=== PATIENT | female | born 1970 | race Caucasian/White ===

== ENCOUNTER 2018-07-20 09:53 | Emergency (ER) | payer BC, OTHER ==
[2018-07-20 11:53] VITALS: BP 128/78
--- NOTE | 2018-07-20 11:53 | UC ---
Throat Pain/Nasal Latrell HPI - HPI Summary HPI Summary: 48 y/o female presents to the urgent care c/o sinus congestion w/ clear nasal discharge, sore throat, +PND, body aches. subjective fever at home w/ chill and a dry cough since Friday07/17/2018. Pt reports she has been taking alkaseltzer plus, Dayquill PO to alleviate symptoms. Pain w/ swallowing is 5/10. Pt reports Hx of Asthma and she request albuterol inhaler and Nebulizer solution. She is concerned her symptoms her symptoms may triggered some wheezing. Pt denies fever, SOB, wheezing, chest pain, abdominal pain, N/V/D. - History of Current Complaint Stated Complaint: SORE THROAT,HEADACHE,BODY ACHES,COUGH Time Seen by Provider: 07/20/18 11:52 Hx Obtained From: Patient Hx Last Menstrual Period: now ?: No Onset/Duration: Gradual Onset, Lasting Days - 2 days, Still Present, Worse Since - today Severity: Moderate Pain Intensity: 5 - sore throat Pain Scale Used: 0-10 Numeric Cough: Nonproductive Associated Signs & Symptoms: Positive: Sinus Discomfort, Nasal Discharge, Fever - subjective at home w/ chills. Negative: Dysphagia, Wheezing - Epiglottits Risk Factors Epiglottis Risk Factors: Negative - Allergies/Home Medications Allergies/Adverse Reactions: Allergies Allergy/AdvReac Type Severity Reaction Status Date / Time No Known Allergies Allergy Verified 09/19/14 17:46 Home Medications: Home Medications Dm/P-Ephed/Acetaminoph/Doxylam [Silvia-Sanford Plus Cold+Flu Pkt] 1 each PO DAILY 07/20/18 [History Confirmed 07/20/18] Lansoprazole [Prevacid] 30 mg PO DAILY 07/20/18 [History Confirmed 07/20/18] Montelukast Sodium 10 mg PO DAILY 07/20/18 [History Confirmed 07/20/18] Simvastatin 20 mg PO DAILY 07/20/18 [History Confirmed 07/20/18] PMH/Surg Hx/FS Hx/Imm Hx Previously Healthy: Yes Endocrine History: Dyslipidemia Respiratory History: Asthma - Surgical History Surgical History: None - Family History Known Family History: Positive: Hypertension, Diabetes - Social History Occupation: Employed Full-time Lives: With Family Alcohol Use: None Substance Use Type: None Smoking Status (MU): Former Smoker When Did the Patient Quit Smoking/Using Tobacco: 2000 Review of Systems All Other Systems Reviewed And Are Negative: Yes Constitutional: Positive: Fever, Chills, Other - body aches Eyes: Positive: Negative ENT: Positive: Sore Throat, Ear Ache - B/L ear pressure, Nasal Discharge - yellowish, Sinus Congestion, Sinus Pain/Tenderness Respiratory: Positive: Cough - dry Cardiovascular: Positive: Negative Gastrointestinal: Positive: Negative Genitourinary: Positive: Negative Motor: Positive: Negative Neurovascular: Positive: Negative Musculoskeletal: Positive: Negative Neurological: Positive: Headache Psychological: Positive: Negative Is Patient Immunocompromised?: No Physical Exam - Summary Physical Exam Summary: VITAL SIGNS: Reviewed. GENERAL: Patient is a well developed and nourished obese female who is sitting comfortable in the examining table. Patient is not in any acute respiratory distress. HEAD AND FACE: No signs of trauma. No ecchymosis, hematomas or skull depressions. No sinus tenderness. EYES: PERRLA, EOMI x 2, No injected conjunctiva, no nystagmus. No photophobia. EARS: Hearing grossly intact. Ear canals and tympanic membranes are within normal limits. MOUTH: Positive pharynx with erythema,mild exudates, mild palatal petechiae. B /L tonsillar enlargement with exudate. Uvula in midline. +PND NECK: Supple, trachea is midline, Positive anterior cervical lymphadenopathy, no JVD, no carotid bruit, no c-spine tenderness, neck with full ROM. No meningeal signs, no Kernig's or brudzinskis signs. CHEST: Symmetric, no tenderness at palpation LUNGS: Clear to auscultation bilaterally. No wheezing or crackles. CVS: Regular rate and rhythm, S1 and S2 present, no murmurs or gallops appreciated. ABDOMEN: Soft, non-tender. No signs of distention. No rebound no guarding, and no masses palpated. Bowel sounds are normal. EXTREMITIES: FROM in all major joints, no edema, no cyanosis or clubbing. NEURO: Alert and oriented x 3. No acute neurological deficits. Speech is normal and follows commands. SKIN: Dry and warm Triage Information Reviewed: Yes Throat Pain/Nasal Course/Dx - Course Course Of Treatment: 48 y/o female presents to the urgent care c/o sinus congestion w/ clear nasal discharge, sore throat, +PND, body aches. subjective fever at home w/ chill and a dry cough since Friday07/17/2018. Pt reports she has been taking alkaseltzer plus, Dayquill PO to alleviate symptoms. Pain w/ swallowing is 5/10. Pt reports Hx of Asthma and she request albuterol inhaler and Nebulizer solution. She is concerned her symptoms her symptoms may triggered some wheezing. Pt denies fever, SOB, wheezing, chest pain, abdominal pain, N/V/D. Hx obtained. Pt w/ URI on examination. Rapid strep: negative, Influenza A&B ordered: result: negative. Pt advised to continue taking Tyleno, PO and to take Delsym PO to alleviate cough and given a refill for albuterol inhaler and nebulizer hemal. to alleviates symptoms. Advised on hand washing. Pt advised to rest, increase fluid intake, eat well and avoid strenuous exercise. If symptoms do not improve or worsen advised to return to the urgent care or f/u with her PCP for further evaluation and treatment. Pt understood and agreed with plan of care. - Differential Dx/Diagnosis Differential Diagnosis/HQI/PQRI: Influenza, Laryngitis, Mononucleosis, Pharyngitis, Sinusitis, Tonsillitis, URI, Other - asthma ,bronchitis Provider Diagnosis: Upper respiratory infection with cough and congestion Discharge - Sign-Out/Discharge Documenting (check all that apply): Patient Departure - D/C home All imaging exams completed and their final reports reviewed: No Studies - Discharge Plan Condition: Stable Disposition: HOME Prescriptions: Albuterol 2.5MG/3ML (0.083%)* [Ventolin 2.5 MG/3 ML NEB.HEMAL*] 2.5 mg INH Q6H PRN #1 box PRN Reason: Wheezing Albuterol HFA INHALER* [Ventolin HFA Inhaler*] 1 - 2 puff INH Q6H PRN #1 mdi PRN Reason: Cough Patient Education Materials: Upper Respiratory Infection (ED) Forms: *Work Release Referrals: Zaki Briones MD [Primary Care Provider] - 3 Days Additional Instructions: 1-Please continue taking Tylenol PO q6-8hrs prn as instructed after meals to alleviate fever, and sore throat. Increase fluid intake, eat well, rest and avoid strenuous exercise 2- Take Delsym PO to alleviate cough. Also use the albuterol inhaler to alleviate cough as directed. 3-If symptoms do not improve or worsen please return to the urgent care or f/u with your PCP in 3 days for further evaluation and treatment. - Billing Disposition and Condition Condition: STABLE Disposition: Home
== END 2018-07-20 12:55 | disposition home or self-care (01) ==
LOC: UCCORT 09:53
DX: J06.9 Acute upper respiratory infection, unspecified (principal); R05 Cough; J34.89 Other specified disorders of nose and nasal sinuses; E78.5 Hyperlipidemia, unspecified; Z87.891 Personal history of nicotine dependence
CPT/HCPCS: 87651; 99212; G0463

== ENCOUNTER 2018-07-23 08:33 | Emergency (ER) | payer OTHER ==
[2018-07-23 09:01] VITALS: BP 128/77
--- NOTE | 2018-07-23 10:00 | ED ---
Respiratory - HPI Summary HPI Summary: 48 yr old with persistent sinus congestion, post nasal drip, coughing. She feels the symptoms are now exacerbating her asthma. She has been having fever, chills. She has had symptoms for about one week. - History of Current Complaint Chief Complaint: UCRespiratory Stated Complaint: ST,RT EYE CONCERN Time Seen by Provider: 07/23/18 09:19 Pain Intensity: 8 - Allergy/Home Medications Allergies/Adverse Reactions: Allergies Allergy/AdvReac Type Severity Reaction Status Date / Time No Known Allergies Allergy Verified 07/23/18 08:58 PMH/Surg Hx/FS Hx/Imm Hx Respiratory History: Reports: Hx Asthma Infectious Disease History: No Infectious Disease History: Denies: Traveled Outside the [place] in Last 30 Days - Family History Known Family History: Positive: Hypertension, Diabetes - Social History Occupation: Employed Full-time Alcohol Use: Occasionally Substance Use Type: Reports: None Smoking Status (MU): Former Smoker Review of Systems Constitutional: Negative Positive: Sore Throat, Nasal Discharge Positive: Cough All Other Systems Reviewed And Are Negative: Yes Physical Exam Triage Information Reviewed: Yes Vital Signs On Initial Exam: Initial Vitals Temp Pulse Resp BP Pulse Ox 98.1 F 96 18 128/77 99 07/23/18 08:54 07/23/18 08:54 07/23/18 08:54 07/23/18 08:54 07/23/18 08:54 Vital Signs Reviewed: Yes Appearance: Positive: Well-Appearing, No Pain Distress Skin: Positive: Warm, Skin Color Reflects Adequate Perfusion Head/Face: Positive: Normal Head/Face Inspection Eyes: Positive: EOMI, Conjunctiva Inflammed - right eye. ENT: Positive: Pharyngeal erythema, Nasal congestion, Nasal drainage, TMs normal , Sinus tenderness Respiratory/Lung Sounds: Positive: Clear to Auscultation, Breath Sounds Present. Negative: Wheezes Cardiovascular: Positive: RRR. Negative: Murmur Abdomen Description: Negative: Distended Musculoskeletal: Positive: Strength/ROM Intact Neurological: Positive: Sensory/Motor Intact, Alert, Oriented to Person Place, Time, CN Intact II-III Psychiatric: Positive: Normal - Alberto Coma Scale Best Eye Response: 4 - Spontaneous Best Motor Response: 6 - Obeys Commands Best Verbal Response: 5 - Oriented Coma Scale Total: 15 Diagnostics - Vital Signs Vital Signs Temp Pulse Resp BP Pulse Ox 07/23/18 08:54 98.1 F 96 18 128/77 99 - Laboratory Lab Statement: Any lab studies that have been ordered have been reviewed, and results considered in the medical decision making process. Disposition - Course Course Of Treatment: 48 yr old with sinusitis. Asthmatic bronchitis. Rx with prednisone, cefdinir, and sulfa eye drops. - Diagnoses Provider Diagnoses: Sinusitis, Acute bronchitis, Conjunctivitis Discharge - Sign-Out/Discharge Documenting (check all that apply): Patient Departure All imaging exams completed and their final reports reviewed: No Studies - Discharge Plan Condition: Good Disposition: HOME Prescriptions: Cefdinir [Cefdinir 300 MG CAP] 300 mg PO BID #20 capsule predniSONE TAB* [Deltasone 20 MG TAB*] 40 mg PO DAILY #8 tab Sulfacetamide 10 % OPTH.HEMAL* [Sulamyd 10% Opth*] 1 drop RIGHT EYE Q4H #1 btl Patient Education Materials: Sinusitis (ED), Conjunctivitis (ED) Forms: *Work Release Referrals: Zaki Briones MD [Primary Care Provider] - 2 Days - Billing Disposition and Condition Condition: GOOD Disposition: Home
== END 2018-07-23 10:00 | disposition home or self-care (01) ==
LOC: UCCORT 08:33
DX: Z87.891 Personal history of nicotine dependence (principal); J32.9 Chronic sinusitis, unspecified; J20.9 Acute bronchitis, unspecified; H10.9 Unspecified conjunctivitis
CPT/HCPCS: 99212; G0463